=== PATIENT | female | born 1940 | race Caucasian/White ===

== ENCOUNTER 2016-07-13 15:24 | Observation (INO) | payer MEDICARE, OTHER ==
[2016-07-13] MEDS ORDERED: KETOROLAC 60 MG/2 ML VIAL IVP STA (15:39)
[2016-07-13] MEDS ORDERED: NITROGLYCERIN OINT 1 INCH/GM PACKET TOPICAL STA (15:41)
[2016-07-13] MEDS ORDERED: ASPIRIN 81 MG CHEW PO STA (15:41)
--- NOTE | 2016-07-13 15:41 | ED ---
General Adult HPI - General Stated complaint: Chest Pain/Pt history Time Seen by Provider: 07/13/16 15:25 Source: RN notes reviewed - History of Present Illness Initial comments: This is a 68-year-old female presents to the emergency department stating that she has had chest pain since yesterday. Patient states the chest pain is much worse with deep breathing. Patient states she has body aches from her neck to her waist since yesterday as well. Patient states that she holds her breath she does not appear to have much chest pain. Patient states she is a little bit more short of breath than normal as well. Patient denies any fever but she feels hot. Patient denies any abdominal pain patient denies nausea vomiting or diarrhea per patient denies headache patient denies numbness weakness. Patient denies any lightheadedness dizziness or near syncopal episode. Patient denies any recent injury or fall. - Related Data Home Medications Medication Instructions Recorded Confirmed Amiodarone [Cordarone] 100 mg PO DAILY 06/07/14 07/13/16 Multivitamin/Iron/Folic Acid 1 tab PO DAILY 06/07/14 07/13/16 [Centrum Complete Multivit Tab] [place]-3 Fatty Acids/Fish Oil [Fish 1 cap PO DAILY 06/07/14 07/13/16 Oil 1,000 mg Softgel] Spironolactone [Aldactone] 12.5 mg PO DAILY PRN 06/07/14 07/13/16 Warfarin [Coumadin] 5 mg PO TUTH 06/07/14 07/13/16 Warfarin [Coumadin] 7.5 mg PO SUMOWEFRSA 06/07/14 07/13/16 Levothyroxine Sodium [Synthroid] 137 mcg PO DAILY 10/24/14 07/13/16 Vit C/E/Zn/Coppr/Lutein/Zeaxan 1 tab PO DAILY 10/24/14 07/13/16 [Preservision Areds 2 Softgel] Biotin 5 mg PO DAILY 07/13/16 07/13/16 Bisacodyl [Dulcolax] 5 mg PO DAILY PRN 07/13/16 07/13/16 Calcium Carbonate [Calcium] 600 mg PO DAILY 07/13/16 07/13/16 Erythromycin Ophth Oint [Romycin 1 applic RIGHT EYE BID 07/13/16 07/13/16 Ophth Oint] Gluc/[place]-MSM#1/C/Timoteo/Carl/Bor 1 tab PO DAILY 07/13/16 07/13/16 [Glucosamine-Chondroitin Tablet] Propylene Glycol/Peg 400/Pf 1 drop RIGHT EYE BID PRN 07/13/16 07/13/16 [Systane 0.3-0.4% Eye Drops] Venlafaxine HCl ER [Effexor Xr] 37.5 mg PO HS 07/13/16 07/13/16 Previous Rx's Medication Instructions Recorded Metoprolol Succinate [Toprol XL] 25 mg PO DAILY #0 10/27/14 Allergies Allergy/AdvReac Type Severity Reaction Status Date / Time Penicillins Allergy Swelling Verified 07/13/16 15:53 Review of Systems ROS Statement: Those systems with pertinent positive or pertinent negative responses have been documented in the HPI. ROS Other: All systems not noted in ROS Statement are negative. Past Medical History Past Medical History: Atrial Fibrillation, Heart Failure, COPD, Mitral Valve Prolapse (MVP), Osteoarthritis (OA), Thyroid Disorder Additional Past Medical History / Comment(s): MACULAR DEGENERATION, SHORT TERM MEMORY PROBLEMS History of Any Multi-Drug Resistant Organisms: None Reported Past Surgical History: Heart Catheterization Additional Past Surgical History / Comment(s): MITRAL VALVE REPAIR, AORTIC VALVE REPAIR, CARDIOVERSION, BUD Past Anesthesia/Blood Transfusion Reactions: No Reported Reaction Past Psychological History: Depression Additional Psychological History / Comment(s): SHORT TERM MEMORY LOSS Smoking Status: Former smoker Past Alcohol Use History: Occasional Additional Past Alcohol Use History / Comment(s): STARTED SMOKING AT AGE 19, SMOKED 1 PPD QUIT 2007 Past Drug Use History: None Reported - Past Family History Father Family Medical History: Dementia Additional Family Medical History / Comment(s): ALZHEIMER'S Mother Family Medical History: Dementia Additional Family Medical History / Comment(s): ALZHEIMER'S General Exam - General Exam Comments Initial Comments: GENERAL: Patient is well-developed and well-nourished. Patient is nontoxic and well- hydrated and is in mild distress. ENT: Neck is soft and supple. No significant lymphadenopathy is noted. Oropharynx is clear. Moist mucous membranes. Neck has full range of motion without eliciting any pain. EYES: The sclera were anicteric and conjunctiva were pink and moist. Extraocular movements were intact and pupils were equal round and reactive to light. Eyelids were unremarkable. PULMONARY: Unlabored respirations. Good breath sounds bilaterally. No audible rales rhonchi or wheezing was noted. CARDIOVASCULAR: There is a regular rate and rhythm without any murmurs gallops or rubs ABDOMEN: Soft and nontender with normal bowel sounds. No palpable organomegaly was noted. There is no palpable pulsatile mass. SKIN: Skin is clear with no lesions or rashes and otherwise unremarkable. NEUROLOGIC: Patient is alert and oriented x3. Cranial nerves II through XII are grossly intact. Motor and sensory are also intact. Normal speech, volume and content. Symmetrical smile. MUSCULOSKELETAL: Normal extremities with adequate strength and full range of motion. No lower extremity swelling or edema. No calf tenderness. LYMPHATICS: No significant lymphadenopathy is noted PSYCHIATRIC: Normal psychiatric evaluation. Course Vital Signs 07/13/16 15:45 Temperature 98.5 F Pulse Rate 71 Respiratory 18 Rate Blood Pressure 115/70 O2 Sat by Pulse 98 Oximetry Medical Decision Making - Medical Decision Making EKG shows a normal sinus rhythm at [address] interval 180 QRS is 66 QT interval 370 QTC is 402. EKG shows no ST segment elevation or depression. There are some Q waves in leads 3 and aVF2 Patient's chest x-ray is normal. - Lab Data Result diagrams: 07/13/16 15:45 07/13/16 15:45 Lab Results 07/13/16 07/13/16 07/13/16 Range/Units 15:45 15:45 15:45 WBC 9.6 (3.8-10.6) k/uL RBC 3.71 L (3.80-5.40) m/uL Hgb 11.4 (11.4-16.0) gm/dL Hct 35.3 (34.0-46.0) % MCV 95.2 (80.0-100.0) fL MCH 30.6 (25.0-35.0) pg MCHC 32.2 (31.0-37.0) g/dL RDW 14.0 (11.5-15.5) % Plt Count 234 (150-450) k/uL Neutrophils % 80 % Lymphocytes % 10 % Monocytes % 6 % Eosinophils % 1 % Basophils % 0 % Neutrophils # 7.6 (1.3-7.7) k/uL Lymphocytes # 1.0 (1.0-4.8) k/uL Monocytes # 0.6 (0-1.0) k/uL Eosinophils # 0.1 (0-0.7) k/uL Basophils # 0.0 (0-0.2) k/uL PT (9.0-12.0) sec INR (<1.1) APTT (22.0-30.0) sec Sodium 137 (137-145) mmol/L Potassium 3.7 (3.5-5.1) mmol/L Chloride 101 (98-107) mmol/L Carbon Dioxide 26 (22-30) mmol/L Anion Gap 10 mmol/L BUN 22 H (7-17) mg/dL Creatinine 1.34 H (0.52-1.04) mg/dL Est GFR (MDRD) Af Amer 46 (>60 ml/min/1.73 sqM) Est GFR (MDRD) Non-Af 38 (>60 ml/min/1.73 sqM) Glucose 115 H (74-99) mg/dL Calcium 9.5 (8.4-10.2) mg/dL Magnesium 1.7 (1.6-2.3) mg/dL Total Bilirubin 0.7 (0.2-1.3) mg/dL AST 33 (14-36) U/L ALT 36 (9-52) U/L Alkaline Phosphatase 66 (38-126) U/L Total Creatine Kinase 27 L (30-135) U/L CK-MB (CK-2) <0.2 (0.0-2.4) ng/mL CK-MB (CK-2) Rel Index Troponin I <0.012 (0.000-0.034) ng/mL Total Protein 7.1 (6.3-8.2) g/dL Albumin 4.0 (3.5-5.0) g/dL Urine Color Urine Appearance (Clear) Urine pH (5.0-8.0) Ur Specific [place] (1.001-1.035) Urine Protein (Negative) Urine Glucose (UA) (Negative) Urine Ketones (Negative) Urine Blood (Negative) Urine Nitrate (Negative) Urine Bilirubin (Negative) Urine Urobilinogen (<2.0) mg/dL Ur Leukocyte Esterase (Negative) Urine WBC (0-5) /hpf Ur Squamous Epith Cells (0-4) /hpf Urine Mucus (None) /hpf Influenza Type A RNA (Not Detectd) Influenza Type B (PCR) (Not Detectd) 07/13/16 07/13/16 07/13/16 Range/Units 15:45 16:28 16:45 WBC (3.8-10.6) k/uL RBC (3.80-5.40) m/uL Hgb (11.4-16.0) gm/dL Hct (34.0-46.0) % MCV (80.0-100.0) fL MCH (25.0-35.0) pg MCHC (31.0-37.0) g/dL RDW (11.5-15.5) % Plt Count (150-450) k/uL Neutrophils % % Lymphocytes % % Monocytes % % Eosinophils % % Basophils % % Neutrophils # (1.3-7.7) k/uL Lymphocytes # (1.0-4.8) k/uL Monocytes # (0-1.0) k/uL Eosinophils # (0-0.7) k/uL Basophils # (0-0.2) k/uL PT 27.1 H (9.0-12.0) sec INR 2.8 (<1.1) APTT 39.2 H (22.0-30.0) sec Sodium (137-145) mmol/L Potassium (3.5-5.1) mmol/L Chloride (98-107) mmol/L Carbon Dioxide (22-30) mmol/L Anion Gap mmol/L BUN (7-17) mg/dL Creatinine (0.52-1.04) mg/dL Est GFR (MDRD) Af Amer (>60 ml/min/1.73 sqM) Est GFR (MDRD) Non-Af (>60 ml/min/1.73 sqM) Glucose (74-99) mg/dL Calcium (8.4-10.2) mg/dL Magnesium (1.6-2.3) mg/dL Total Bilirubin (0.2-1.3) mg/dL AST (14-36) U/L ALT (9-52) U/L Alkaline Phosphatase (38-126) U/L Total Creatine Kinase (30-135) U/L CK-MB (CK-2) (0.0-2.4) ng/mL CK-MB (CK-2) Rel Index Troponin I (0.000-0.034) ng/mL Total Protein (6.3-8.2) g/dL Albumin (3.5-5.0) g/dL Urine Color Yellow Urine Appearance Clear (Clear) Urine pH 6.0 (5.0-8.0) Ur Specific [place] 1.017 (1.001-1.035) Urine Protein 1+ H (Negative) Urine Glucose (UA) Negative (Negative) Urine Ketones Negative (Negative) Urine Blood Negative (Negative) Urine Nitrate Negative (Negative) Urine Bilirubin Negative (Negative) Urine Urobilinogen <2.0 (<2.0) mg/dL Ur Leukocyte Esterase Negative (Negative) Urine WBC 2 (0-5) /hpf Ur Squamous Epith Cells 1 (0-4) /hpf Urine Mucus Rare H (None) /hpf Influenza Type A RNA Not Detected (Not Detectd) Influenza Type B (PCR) Not Detected (Not Detectd) Disposition Clinical Impression: Chest pain Disposition: ADMITTED IP TO THIS [facility] Time of Disposition: 17:10
[2016-07-13 15:48] VITALS: RESP 18
[2016-07-13 15:57] LABS: Basophils % (A) 0 %; CH 30.6; CHCM 32.3; Eosinophils # (A) 0.1 k/uL (0-0.7); Eosinophils % (A) 1 %; HCT 35.3 % (34.0-46.0); HDW 2.22; HGB 11.4 gm/dL (11.4-16.0); Luc # (Auto) 0.23; Luc % (Auto) 2; Lymphocytes % (A) 10 %; MCH 30.6 pg (25.0-35.0); MCHC 32.2 g/dL (31.0-37.0); MCV 95.2 fL (80.0-100.0); Mean Platelet Volume 7.1; Monocytes # (A) 0.6 k/uL (0-1.0); Monocytes % (A) 6 %; Neutrophils # (A) 7.6 k/uL (1.3-7.7); Neutrophils % (A) 80 %; RBC 3.71 m/uL (3.80-5.40); WBC 9.6 k/uL (3.8-10.6); WBC (Perox) 9.98
[2016-07-13 16:03] LABS: INR 2.8 (<1.1); Partial Thromboplastin Time 39.2 sec (22.0-30.0); Prothrombin Time 27.1 sec (9.0-12.0)
[2016-07-13 16:06] LABS: Calcium 9.5 mg/dL (8.4-10.2); Magnesium 1.7 mg/dL (1.6-2.3); Potassium 3.7 mmol/L (3.5-5.1); Total Bilirubin 0.7 mg/dL (0.2-1.3); Total Protein 7.1 g/dL (6.3-8.2)
[2016-07-13 16:16] LABS: Creatine Kinase 27 U/L (30-135)
[2016-07-13 16:28] LABS: Creatine Kinase MB <0.2 ng/mL (0.0-2.4); Troponin I <0.012 ng/mL (0.000-0.034)
--- NOTE | 2016-07-13 16:37 | XR ---
EXAMINATION TYPE: XR chest 2V DATE OF EXAM: 07/13/2016 4:22 PM COMPARISON: 06/07/2014 HISTORY: Chest pain TECHNIQUE: Frontal and lateral views of the chest are obtained. FINDINGS: There is mild blunting of right costophrenic angle. There is no heart failure. There are s ternal wires. There are no hilar masses. There are chest leads. IMPRESSION: There is mild pleural diaphragmatic scarring at the right lung base without change faith red to old exam. No heart failure.
[2016-07-13 17:00] LABS: Appearance,Urine Clear (Clear); Bilirubin,Urine Negative (Negative); Glucose,Urine (UA) Negative (Negative); Ketones,Urine Negative (Negative); Leukocyte Esterase,Urine Negative (Negative); Mucus,Urine Rare /hpf; Nitrite,Urine Negative (Negative); Particle Count 2303; Protein,Urine 1+ (Negative); Specific Gravity,Urine 1.017 (1.001-1.035); Squamous Epithelial Cell,Urine 1 /hpf (0-4); UA Billing (MACRO vs. MICRO) MICRO; Urobilinogen,Urine <2.0 mg/dL (<2.0); WBC,Urine 2 /hpf (0-5)
[2016-07-13] MEDS ORDERED: NITROGLYCERIN SL TABS 0.4 MG TAB SUBLINGUAL PRN (17:14)
[2016-07-13 18:59] VITALS: BMI 23.3
[2016-07-13] MEDS ORDERED: BISACODYL 5 MG TABLET.DR PO PRN (19:46)
[2016-07-13] MEDS ORDERED: ARTIFICIAL TEARS-HYPROMELLOSE DROPS 15 ML BTL RIGHT EYE PRN (19:46)
[2016-07-13] MEDS ORDERED: WARFARIN 7.5 MG TAB PO SCH (20:00)
[2016-07-13] MEDS ORDERED: VENLAFAXINE HCL ER 37.5 MG CAP PO SCH (21:00)
[2016-07-13] MEDS: ERYTHROMYCIN 5 MG/GM OPHTH OINT 3.5 GM TUBE RIGHT EYE SCH (21:14)
[2016-07-13] MEDS ORDERED: WARFARIN 5 MG TAB PO SCH (21:30)
[2016-07-13 22:12] LABS: Creatine Kinase 26 U/L (30-135)
[2016-07-13 22:25] LABS: Creatine Kinase MB 0.2 ng/mL (0.0-2.4); Troponin I <0.012 ng/mL (0.000-0.034)
[2016-07-14 03:57] LABS: CHCM 32.3; HCT 32.9 % (34.0-46.0); HDW 2.23; HGB 10.4 gm/dL (11.4-16.0); MCH 30.5 pg (25.0-35.0); MCHC 31.7 g/dL (31.0-37.0); MCV 96.2 fL (80.0-100.0); Mean Platelet Volume 7.6; RBC 3.41 m/uL (3.80-5.40); RDW 13.8 % (11.5-15.5); WBC 8.2 k/uL (3.8-10.6)
[2016-07-14 04:07] LABS: INR 2.8 (<1.1)
[2016-07-14 04:12] LABS: Calcium 9.2 mg/dL (8.4-10.2); Potassium 4.1 mmol/L (3.5-5.1)
[2016-07-14 04:20] LABS: Creatine Kinase 22 U/L (30-135)
[2016-07-14 04:33] LABS: Creatine Kinase MB 0.3 ng/mL (0.0-2.4); Troponin I <0.012 ng/mL (0.000-0.034)
[2016-07-14] MEDS: NITROGLYCERIN OINT 1 INCH/GM PACKET TOPICAL SCH (05:27)
[2016-07-14 05:30] VITALS: PULSE 71
[2016-07-14] MEDS ORDERED: LEVOTHYROXINE 137 MCG TAB PO SCH (06:30)
[2016-07-14 07:52] VITALS: BP 119/58; TEMP 98.6
[2016-07-14] MEDS ORDERED: NON-FORMULARY DRUG (Biotin [Biotin] 5 MG) PO SCH (09:00)
[2016-07-14] MEDS ORDERED: ASPIRIN 325 MG TAB PO SCH (09:00)
[2016-07-14] MEDS ORDERED: METOPROLOL SUCCINATE (ER) 25 MG TAB.ER.24H PO SCH (09:00)
[2016-07-14] MEDS ORDERED: NON-FORMULARY DRUG (Gluc/Chon-Msm#1/C/Mang/Bos/Bor [Glucosamine-Chondroitin Tablet] 1 TAB) PO SCH (09:00)
[2016-07-14] MEDS ORDERED: AMIODARONE 100 MG TAB PO SCH (09:00)
[2016-07-14] MEDS ORDERED: NON-FORMULARY DRUG (Omega-3 Fatty Acids/Fish Oil [Fish Oil 1,000 Mg Softgel] 1 CAP) PO SCH (09:00)
--- NOTE | 2016-07-14 09:16 | CONS ---
DATE OF CONSULTATION: CHIEF COMPLAINT: Chest pain. Huyen is a 76-year-old lady with history of atrial fibrillation status post cardioversion, mitral regurgitation, status post mitral valve repair, hypertension, who presented to the hospital complaining of chest discomfort. She describes as a sharp chest pain that is felt in the back gets worse with deep breathing and she also had had a sensation of feverishness in the last few days. Since being admitted to hospital with this discomfort, she ruled out for myocardial infarction. EKG does not reveal ischemic changes and her lipid profile shows an LDL cholesterol 66. Past medical history is significant for atrial fibrillation, hypertension, mitral regurgitation, status post mitral valve repair and hypothyroidism. She is on Coumadin and it is adequately anticoagulated. Medications include: 1. Effexor. 2. Levothyroxine. 3. Cordarone. 4. Coumadin. 5. Aldactone. 6. Toprol-XL. ALLERGIC TO PENICILLIN. FAMILY HISTORY: Negative for premature coronary artery disease. SOCIAL HISTORY: Negative for smoking, ETOH abuse or drug abuse. REVIEW OF SYSTEMS: HEENT: Unremarkable. CARDIAC: As described above. RESPIRATORY: As described above. GI: Negative. GENITOURINARY: Negative. ALLERGY/IMMUNOLOGY: Negative. SKIN: Negative. MUSCULOSKELETAL: Significant for arthritis. PSYCHOSOCIAL: Negative. ENDOCRINE: Negative. Dermatology: Negative. CONSTITUTIONAL: Significant for not feeling well. The rest of the system review is not relevant. On exam, comfortable at rest. Vital signs are stable. There is no jugular venous distention. Carotid upstroke is normal. Chest exam reveals good air entry bilaterally without any crackles or rhonchi. Heart exam reveals first and second heart sounds and a systolic murmur in the left lower sternal border. ABDOMEN: Soft. Exam of the extremities did not reveal any edema. Peripheral pulses are felt. HERB DIGGER exam did not reveal focal neurological deficits. Three sets of cardiac enzymes are negative. INR is therapeutic at 2.8. ASSESSMENT: 1. Chest pain, atypical, probably noncardiac. 2. History of atrial fibrillation status post cardioversion. 3. History of hypertension. 4. Mitral regurgitation, status post mitral valve repair. PLAN: From cardiac standpoint, patient is doing well, we will ambulate her and see how she does. If she is feeling well, she may be discharged home and have outpatient follow-up with Dr. Ramírez. If necessary, she will have a stress test done. If she is still here, she can get an echo in the morning.
[2016-07-14] MEDS: ERYTHROMYCIN 5 MG/GM OPHTH OINT 3.5 GM TUBE RIGHT EYE SCH (09:54)
--- NOTE | 2016-07-14 11:59 | HP ---
HISTORY AND PHYSICAL/DISCHARGE SUMMARY DATE OF ADMISSION: Chief complaint is chest discomfort. HISTORY OF PRESENT ILLNESS: Ms. Miller is a 76-year-old female with a past medical history of chronic atrial fibrillation, COPD, mitral valve prolapse, osteoarthritis, thyroid disorder, coming in to the hospital with a chief complaint of chest discomfort for the past 4 days. Patient states that her chest pain, is in between her rib cage, mostly on the right side, radiating a little bit to the back and worsened with deep inspiration. Patient also complains of generalized body aches. Patient denies having any difficulty in breathing. No dizziness. No loss of consciousness. No complaints of any fever. No cough. Patient denies having any abdominal pain, nausea, vomiting, or diarrhea. Denies having any headaches, any weakness of her extremities. Patient did not her consciousness. No history of recent falls or injuries. REVIEW OF SYSTEMS: All 13 review of systems are done and negative except for the ones mentioned in the HPI. Past medical history is significant for atrial fibrillation, heart failure, COPD, hearing disorder, mitral valve prolapse, osteoarthritis, thyroid disorder. PAST SURGICAL HISTORY: Heart catheterization, mitral valve repair. Allergies to PENICILLIN. PATIENT'S HOME MEDICATIONS: 1. Spironolactone 12.5 mg p.o. daily. 2. Amiodarone 100 mg p.o. daily. 3. Warfarin 7.5 mg Friday, Friday, Friday, Friday and Friday. 4. [place]-3 fatty acids 1 capsule p.o. daily. 5. Coumadin 5 mg p.o. on to Friday and . 6. Multivitamin 1 tablet p.o. daily. 7. Levothyroxine 137 mcg p.o. daily. 8. Metoprolol succinate 25 mg p.o. daily. 9. Propylene glycol one drop in the right eye twice a day. 10. Calcium carbonate 600 mg p.o. daily. 11. Effexor 37.5 mg p.o. q.h.s. 12. Erythromycin ophthalmic ointment to the right eye twice a day. 13. Glucosamine/chondroitin 1 tablet p.o. daily. 14. Dulcolax 5 mg p.o. daily. 15. Biotin 5 mg p.o. daily. SOCIAL HISTORY: Started smoking at the age of 19. Smoke 1 pack and quit in 2007 and occasional alcohol use. Family history is positive for Alzheimer's dementia. Patient's vital signs, temperature 98.6, heart rate 71, respiratory rate 18, blood pressure 119/58, saturating at 95% on 2 L of oxygen. GENERAL EXAMINATION: Elderly female, lying in bed, appears to be in no acute distress. HEAD: Atraumatic, normocephalic. EYES: Pupils, round, and reactive to light. The right eye has a ( ) on the cornea. NECK: No JVD. No thyromegaly. CARDIOVASCULAR: S1, S2 heard. Irregularly irregular and a systolic murmur in the left sternal border. Abdomen is soft, nontender. Bowel sounds positive. EXTREMITIES: No edema, no cyanosis, no clubbing. SELF PAY COLLECTOR: Alert, awake, oriented x3, no focal deficits. Patient's labs: White count of 8.2, hemoglobin 10.4, platelets of 213, INR of 2.8, sodium 137, potassium 4.1, chloride 104, bicarb 25, BUN 22, creatinine 1.14. Troponin less than 0.012 x3. ASSESSMENT AND PLAN: 1. Atypical chest pain. Patient's troponins have been negative x3 and probably musculoskeletal in origin. 2. History of atrial fibrillation, status post cardioversion and on anticoagulation. 3. Mitral valve prolapse, status post mitral valve repair. 4. History of hypertension. 5. History of chronic obstructive pulmonary disease. 6. History of osteoarthritis of multiple joints. 7. Hypothyroidism, acquired. PLAN: The patient's troponins and EKGs have been within normal limits and patient states her chest pain has improved, does not have any chest pain currently and she has been seen by Cardiology and cleared for discharge. So the patient is being discharged home with the same home medication regimen. No changes were made in her medications and advised to follow up with Dr. Ramírez within one weeks' time.
[2016-07-14] MEDS ORDERED: MULTIVITAMINS, THERA 1 EACH TAB PO SCH (12:00)
[2016-07-14] MEDS ORDERED: CALCIUM CARBONATE 500 MG CHEWABLE PO SCH (12:00)
[2016-07-14] MEDS ORDERED: VIT A,C & E-LUTEIN-MINERALS 1 EACH TAB PO SCH (12:00)
[2016-07-14] MEDS ORDERED: WARFARIN 7.5 MG TAB PO SCH (18:00)
[2016-07-16] MEDS ORDERED: WARFARIN 5 MG TAB PO SCH (18:00)
== END 2016-07-14 11:58 | disposition home or self-care (01) ==
LOC: EC 15:24 → 3OBS 17:14
PROVIDERS: ADMIT Internal Medicine; ATTEND Internal Medicine
DX: R07.89 Other chest pain (principal); I48.2 Chronic atrial fibrillation; E03.9 Hypothyroidism, unspecified; I50.9 Heart failure, unspecified; J44.9 Chronic obstructive pulmonary disease, unspecified; M15.9 Polyosteoarthritis, unspecified; R52 Pain, unspecified; Z87.891 Personal history of nicotine dependence; Z88.0 Allergy status to penicillin; Z79.01 Long term (current) use of anticoagulants; Z79.890 Hormone replacement therapy; Z79.899 Other long term (current) drug therapy; I11.0 Hypertensive heart disease with heart failure
CPT/HCPCS: 99285 ×2; 96374 ×2; 36415; 93005; 80061; 80053; 80048; 82550 ×2; 82553 ×2; 83735; 84484 ×2; 85025; 85027; 85610 ×2; 85730; 81001; 87040; 87502; 71020; G0378 ×2; J1885

== ENCOUNTER → 2022-12-03 | Outpatient (CLI) | payer MEDICARE, OTHER ==
[2022-12-03 16:10] LABS: INR 1.7 (<1.2)
[2022-12-03 20:25] LABS: ALT 63 U/L (8-44); AST 71 U/L (13-35); Albumin 4.6 d/dL (3.8-4.9); Albumin/Globulin Ratio 1.77 Ratio (1.60-3.17); Alkaline Phosphatase 76 U/L (41-126); BUN/Creat Ratio 29.58 Ratio (12.00-20.00); Blood Urea Nitrogen 35.5 mg/dL (9.0-27.0); Calcium 10.4 mg/dL (8.7-10.3); Carbon Dioxide 25.8 mmol/L (21.6-31.8); Chloride 97 mmol/L (96-109); Globulin 2.6 d/dL (1.6-3.3); Glucose 104 mg/dL (70-110); Potassium 5.2 mmol/L (3.5-5.5); Sodium 138 mmol/L (135-145); Total Bilirubin <0.2 mg/dL (0.3-1.2); Total Protein 7.2 d/dL (6.2-8.2)
== END | disposition home or self-care (01) ==
LOC: LABWHC1 14:10
PROVIDERS: ATTEND Internal Medicine Interventional Cardiology
DX: I48.11 Longstanding persistent atrial fibrillation (principal)
CPT/HCPCS: 36415; 80053; 84443; 85610

== ENCOUNTER 2023-11-11 17:25 | Emergency (ER) | payer MEDICARE, OTHER ==
[2023-11-11 17:29] VITALS: BP 125/88; PULSE 122; RESP 18; TEMP 97.7
[2023-11-11 18:43] LABS: ALT 22 U/L (4-34); AST 34 U/L (14-36); African American GFR (CKD) 56 (>60 ml/min/1.73 sqM); Albumin 4.2 g/dL (3.5-5.0); Alkaline Phosphatase 99 U/L (38-126); Anion Gap 8 mmol/L; Basophils % (A) 1 %; Blood Urea Nitrogen 28 mg/dL (7-17); Carbon Dioxide 27 mmol/L (22-30); Chloride 99 mmol/L (98-107); Eosinophils # (A) 0.2 k/uL (0-0.7); Eosinophils % (A) 3 %; Glucose 127 mg/dL (74-99); HCT 45.5 % (34.0-46.0); HGB 13.9 gm/dL (11.4-16.0); Lymphocytes # (A) 1.2 k/uL (1.0-4.8); Lymphocytes % (A) 18 %; MCH 29.5 pg (25.0-35.0); MCHC 30.6 g/dL (31.0-37.0); MCV 96.3 fL (80.0-100.0); Mean Platelet Volume 8.1; Monocytes # (A) 0.6 k/uL (0-1.0); Monocytes % (A) 9 %; Neutrophils # (A) 4.4 k/uL (1.3-7.7); Neutrophils % (A) 68 %; Non-African American GFR(CKD) 48 (>60 ml/min/1.73 sqM); Platelet Count 274 k/uL (150-450); Potassium 4.2 mmol/L (3.5-5.1); RBC 4.72 m/uL (3.80-5.40); RDW 13.7 % (11.5-15.5); Sodium 134 mmol/L (137-145); Total Bilirubin 0.6 mg/dL (0.2-1.3); Total Protein 6.9 g/dL (6.3-8.2); WBC 6.5 k/uL (3.8-10.6)
[2023-11-11 18:48] LABS: INR 3.2 (<1.2); Partial Thromboplastin Time 38.7 sec (22.0-30.0); Prothrombin Time 30.9 sec (10.0-12.5)
--- NOTE | 2023-11-11 19:05 | XR ---
EXAMINATION TYPE: XR chest 2V DATE OF EXAM: 11/11/2023 COMPARISON: 07/13/2016 HISTORY: 83-year-old female with chest pain, neck pain, shortness of breath TECHNIQUE: PA and lateral views FINDINGS: Heart mildly enlarged. Mildly tortuous thoracic aorta. Median sternotomy wires. Mild hyperinflation. Mild patchy density at the left base. No other consolidation or pleural effusion. IMPRESSION: 1. Mild cardiomegaly. Previous median sternotomy. 2. Correlate for possible underlying COPD. 3. Patchy left basilar atelectasis versus early infiltrate.
== END 2023-11-11 20:26 | disposition left against medical advice (07) ==
LOC: EC 17:25
DX: R07.9 Chest pain, unspecified (principal); R06.02 Shortness of breath; Z53.29 Procedure and treatment not carried out because of patient's decision for other reasons
CPT/HCPCS: 36415; 71046; 80053; 83735; 84484; 85025; 85610; 85730; 93005; 99499